=== PATIENT | female | born 1955 | race Caucasian/White ===

== ENCOUNTER → 2020-12-28 | Day surgery (SDC) | payer BC ==
[~2020-12-28] VITALS: Ht 165.1 cm; Wt 140.0 kg
[~2020-12-28] MED LIST: ALBU2.5V8 INH; FLUT1DIS IH; IV RINGERS,LACTATED 1000ML 1,000 ML IV ONE; IV RINGERS,LACTATED 1000ML 1,000 ML IV SCH; LEVO150T5 PO; LIDOCAINE 2% PF 5 ML VIAL. ONE; LISI1TAB20 PO; PROPOFOL 10 MG/ML (20ML) VIAL. IV ONE
[2020-12-28 08:07] VITALS: BP 123/60
[2020-12-28 09:30] VITALS: BP 138/76
--- NOTE | 2020-12-29 12:07 | PATHOLOGY ---
[facility] Accession Number: [id number] . 01 Material submitted: . PART A: esophagus - DISTAL ESOPHAGUS BIOPSY. Modifiers: distal PART B: colon - RANDOM COLON BIOPSY. Modifiers: RANDOM . 01 Clinical history: . EGD, COLONOSCOPY THROAT PAIN, HEARTBURN . 02 Diagnosis: A. Esophageal biopsies, distal esophagus: - Reflux esophagitis. . B. Colonic mucosa, random colon biopsies: - No significant pathologic abnormalities. (JPM:mery; 12/29/2020) S 12/29/2020 0903 Local . 02 Comment: Sections of the distal esophageal biopsy reveal segments of tangentially oriented hyperplastic squamous esophageal mucosa. The findings are consistent with reflux esophagitis. There is no evidence of Noyola's change, dysplasia, or malignancy. . Sections of the random colon biopsy reveal multiple segments of colonic mucosa containing multiple small mucosal-associated lymphoid aggregates. There is no evidence of a chronic destructive colitis, lymphocytic colitis, or collagenous colitis. (JPM:mery; 12/29/2020) . 02 Electronically signed: . Joseph Meléndez MD, Pathologist NPI- [id number] . 01 Gross description: . A. Received in formalin labeled "Plasencia, Poornima and distal esophagus biopsies". Received are 3 adrian-mccabe soft tissue fragments ranging from 0.2-0.4 cm. The specimen is entirely submitted in cassette A1. . B. Received in formalin labeled "Plasencia, Poornima and random colon biopsies". Received are multiple mccabe-brown soft tissue fragments ranging from 0.2-0.3 cm. The specimen is entirely submitted in cassette B1.(BLJ; 12/28/2020) BLJ/BLJ 12/28/2020 2004 Local . 02 Pathologist provided ICD-10: K21.00, R07.0 . 02 CPT . 487887, 080480 Specimen Comment: A courtesy copy of this report has been sent to [phone], [phone] Specimen Comment: [id number] Specimen Comment: Report sent to / DR MCGOVERN Performed at: 01 [facility] [address] [facility] [address], [place] [id number] MD Dhaval Ruiz MD Phone: [phone] Performed at: 02 [facility] [address] [place], [place] [id number] MD Joseph Meléndez MD Phone: [phone]
== END | disposition home or self-care (01) ==
LOC: SURG 07:40
PROVIDERS: ATTEND Internal Medicine Gastroenterology
DX: R19.7 Diarrhea, unspecified (principal); K64.0 First degree hemorrhoids; K57.30 Diverticulosis of large intestine without perforation or abscess without bleeding; R10.13 Epigastric pain; K29.50 Unspecified chronic gastritis without bleeding; K21.00 Gastro-esophageal reflux disease with esophagitis, without bleeding; K31.89 Other diseases of stomach and duodenum; K63.89 Other specified diseases of intestine; R07.0 Pain in throat; I10 Essential (primary) hypertension; J43.9 Emphysema, unspecified; E66.9 Obesity, unspecified; G47.30 Sleep apnea, unspecified; M19.90 Unspecified osteoarthritis, unspecified site; E03.9 Hypothyroidism, unspecified; F41.9 Anxiety disorder, unspecified; F32.9 Major depressive disorder, single episode, unspecified; Z87.891 Personal history of nicotine dependence; Z90.710 Acquired absence of both cervix and uterus; Z98.890 Other specified postprocedural states; Z72.89 Other problems related to lifestyle; Z88.2 Allergy status to sulfonamides; Z88.8 Allergy status to other drugs, medicaments and biological substances
CPT/HCPCS: 43239; 45380; 88305; J2704